=== PATIENT | male | born 1965 | race Caucasian/White ===

== ENCOUNTER 2018-01-11 08:50 | Emergency (ER) | payer BC ==
[~2018-01-11] VITALS: Ht 172.7 cm; Wt 105.9 kg
[~2018-01-11 08:50] MED LIST: FLOMAX 0.40.4 MG/CAP PO; PERCOCET 325 MG1 TA2 PO; ZOFRAN ODT4 MG PO
[2018-01-11 08:52] VITALS: TEMP 97.5
[2018-01-11 09:18] LABS: BASO % 0.5 % (0.0-2.0); EOS # 0.2 (0.0-0.7); EOS % 2.3 % (0-4.0); GRAN # 5.2 (1.4-6.5); GRAN % 69.5 % (42.2-75.2); HEMATOCRIT 48.3 % (42.0-52.0); LYMPH # 1.5 (1.2-3.4); LYMPH % 20.1 % (20.0-51.0); MEAN CELL VOLUME 88 fl (80.0-100.0); MEAN CORPUSCULAR HEMOGLOBIN 31 pg (27.0-31.0); MEAN CORPUSCULAR HGB CONC 35 g/dl (33.0-37.0); MEAN PLATELET VOLUME 9.8 fl (7.4-10.4); MONO # 0.6 (0.1-0.6); MONO % 7.3 % (1.7-9.3); PLATELET COUNT 164 K/mm3 (130-400); RED BLOOD COUNT 5.52 M/mm3 (4.20-5.60); REDCELL DISTRIBUTION WIDTH-CV 12.9 % (11.5-14.5)
[2018-01-11 09:27] LABS: ALBUMIN 4.1 gm/dL (3.5-5.0); BILIRUBIN,TOTAL 0.6 mg/dL (0.0-1.0); C-REACTIVE PROTEIN 0.8 mg/dL (0.0-0.9); CALCIUM 8.5 mg/dL (8.4-10.2); CREATININE, serum 0.97 mg/dL (0.66-1.25); TOTAL PROTEIN 7.8 gm/dL (6.4-8.2)
[2018-01-11 09:31] LABS: COLLECTION METHOD CLEAN CATCH
[2018-01-11 09:38] LABS: MUCOUS Present /lpf; PH 5 (5-8); SQUAMOUS EPITHELIAL None Seen /hpf; URINE APPEARANCE Cloudy; URINE BACTERIA None Seen /hpf; URINE BILIRUBIN Negative (NEGATIVE); URINE BLOOD 3+ (NEGATIVE); URINE CALCIUM OXALATE CRYSTAL Present /hpf; URINE COLOR Amber; URINE GLUCOSE Negative (NEGATIVE); URINE KETONE Negative (NEGATIVE); URINE LEUKOCYTE ESTERASE Negative (NEGATIVE); URINE NITRATE Negative (NEGATIVE); URINE PROTEIN(semi-quant) 2+ (NEGATIVE); URINE RBC >50 /hpf
[2018-01-11] MEDS ORDERED: ZOFRAN ODT4 MG PO (10:12)
[2018-01-11] MEDS ORDERED: PERCOCET 325 MG1 TA2 PO (10:12)
[2018-01-11] MEDS ORDERED: FLOMAX 0.40.4 MG/CAP PO (10:12)
[2018-01-11 11:00] VITALS: BP 124/64; PULSE 58
== END 2018-01-11 11:02 | disposition home or self-care (01) ==
LOC: COL.ER 08:50
PROVIDERS: Physician Assistant
DX: R10.9 Unspecified abdominal pain (principal); G47.30 Sleep apnea, unspecified; Z87.442 Personal history of urinary calculi; Z90.49 Acquired absence of other specified parts of digestive tract
CPT/HCPCS: J1885; J2405; J7030

== ENCOUNTER → 2019-05-30 | Outpatient (CLI) | payer BC | LOC: COL.RAD 05-29 12:45 | DX: M76.62 Achilles tendinitis, left leg (principal) ==